=== PATIENT | male | born 1990 | race Caucasian/White ===

== ENCOUNTER 2016-05-10 13:34 | Emergency (ER) | payer OTHER ==
--- NOTE | 2016-05-10 14:39 | DIAGNOSTIC IMAGING REPORT ---
PROCEDURE: XR CHEST 2 VIEW INDICATION: CHEST PAIN TECHNIQUE: PA and lateral views. COMPARISON: None. FINDINGS: Lungs are clear. Heart and mediastinum are normal. Thorax is normal. IMPRESSION: 1. Negative chest.
--- NOTE | 2016-05-10 15:28 | ED CLINICAL REPORT ---
Clinical Report - Physicians/Mid Levels [facility] [address], [place] [address] 05/10/2016 13:36 Patient: NIECY SMITH Time Seen: 13:54 Kashif 2016. Arrived- By private vehicle. Historian- patient. HISTORY OF PRESENT ILLNESS Chief Complaint: CHEST PAIN and DISCOMFORT. It is described as located in the central chest area. This started 2 - 3 weeks MOLD SHIFTER and is still present. (Intermittent chest pain palpitations over the last 2-3 weeks, lasting a few hours sometimes minutes. Denies any shortness of breath, illness, fevers or chills. He denies any pattern of activity to the pain. Denies any fevers or chills. Denies any trauma. Denies history of DVT or PE. Denies any history of [place] in the family.). REVIEW OF SYSTEMS No chills, pedal edema, vaginal discharge, abdominal pain or difficulty with urination. All systems otherwise negative, except as recorded above. SOCIAL HISTORY History of drug use cocaine use occasional, last use 4 weeks prior. ADDITIONAL NOTES The nursing notes have been reviewed. PHYSICAL EXAM Appearance: Alert. No acute distress. No apparent distress. Does not appear to be anxious. Eyes: Pupils equal, round and reactive to light. Eyes normal inspection. ENT: Ears normal. Neck: Normal inspection. Neck supple. CVS: Normal heart rate and rhythm. Heart sounds normal. Respiratory: No respiratory distress. Breath sounds normal. No retractions, chest pain reproduced on physical exam or decreased air movement. Abdomen: Soft and nontender. Neuro: Oriented X 3. No motor deficit. No sensory deficit. LABS, X-RAYS, AND EKG EKG: EKG time: (1357). No acute process. No acute ischemia. Rate: 85. Normal P waves. Normal ALBAN. Normal QRS complex. Normal axis. Normal ST and T waves and QT. Prior EKG unavailable. The study has been interpreted contemporaneously. The study has been independently viewed by me. The EKG appears to be a good tracing. Chest X-ray: (IMPRESSION: 1. Negative chest. Electronically Final signed by:Juancho Dockery MD 05/10/2016 2:43:08 PM). Laboratory Tests: CBC w Diff: (CONNIE: 05/10/2016 14:40) ( MsgRcvd 05/10/2016 14:53) Final results Test Result Flag Units (Reference) WHITE BLOOD COUNT 5.7 K/uL (4.5-11.5) RED BLOOD COUNT 4.85 M/uL (4.50-5.90) HEMOGLOBIN 15.0 gm/dL (13.5-17.5) HEMATOCRIT 45.1 % (41.0-53.0) MEAN CELL VOLUME 93 fL (80-100) MEAN CORPUSCULAR HGB 31 pg (26-34) MEAN CORPUSCULAR HGB CONC 33 g/dL (31-37) RED CELL DISTRIBUTION WIDTH 12.2 % (11.6-14.8) PLATELET COUNT 232 K/uL (150-400) NEUTROPHIL % 59.5 % (50-75) LYMPH % 26.4 % (25-40) MONO % 10.3 % (3-14) EOSINOPHIL % 3.0 % (0-4) BASOPHIL % 0.8 % (0-2) CHEM 13 PANEL: (CONNIE: 05/10/2016 14:40) ( MsgRcvd 05/10/2016 15:19) Final results Test Result Flag Units (Reference) GLUCOSE 110 mg/dL (70-110) BUN 15 mg/dL (7-18) CREATININE 1.0 mg/dL (0.6-1.3) Estimated GFR >60 mL/min Estimated GFR- >60 mL/min Note: Persistent reduction over 3 months in eGFR<60 mL/min/1.73 m2 defines CKD. Patients with eGFR values>=60 mL/min/1.73 m2 may also have CKD if evidence ofpersistent proteinuria. Additional information may be foundat www.kidney.org. SODIUM 142 mmol/L (136-145) POTASSIUM 3.9 mmol/L (3.5-5.1) CHLORIDE 106 mmol/L (98-107) CARBON DIOXIDE 30 mmol/L (21-32) CALCIUM 9.0 mg/dL (8.5-10.1) TOTAL PROTEIN 7.3 g/dL (6.4-8.2) ALBUMIN 4.0 g/dL (3.3-5.0) BILIRUBIN, TOTAL 1.0 mg/dL (0.0-1.0) ALKALINE PHOSPHATASE 49 U/L (46-116) AST (SGOT) 18 U/L (15-37) ALT (SGPT) 21 U/L (12-78) CPK 95 U/L (24-260) MAGNESIUM 2.0 mg/dL (1.8-2.4) TROPONIN I <0.05 L ng/mL (0.00-1.5) TROPONIN REFERENCE RANGE:<0.1 NEGATIVE0.1-1.5 INDETERMINANT>1.5 POSITIVE . PROGRESS AND PROCEDURES Course of Care: Patient with no new murmur, afebrile, no reproducible pain. Patient reports symptoms worsen when he has energy drinks, may be anxiety related believes. He is stable otherwise. To follow up outpatient. This time suspicion for acute ACS, PE is LOWEST. Patient/family counseled. Differential Diagnosis: I considered muscle strain, pleurisy, intercostal neuritis, myocardial infarction, intermediate coronary syndrome, aortic dissection, pulmonary embolism, pneumonia and gastroesophageal reflux disease as a possible cause of chest pain in this patient. This is a partial list of diagnoses considered. Wells clinical prediction rule (PE): No clinical symptoms of DVT, other diagnosis less likely than PE, immobilization or surgery within 4wks, previous DVT or PE or hemoptysis. No malignancy. Heart rate less than 100 per minute. Disposition: Discharged. Condition: good. CLINICAL IMPRESSION Atypical chest pain INSTRUCTIONS No strenuous activity. Rest. Avoid stimulants (such as cigarettes, coffee, cold medicines, sinus medicines, street drugs). Follow a low salt diet. OTC Medications: Take OTC medications according to label instructions. Available over the counter. Acetaminophen (available over the counter): take according to label instructions. Motrin (available over the counter): take according to label instructions. Follow-up: Follow up with your doctor in three days. Understanding of the discharge instructions verbalized by patient. (Electronically signed by Lara Guadalupe P.A.-C 05/10/2016 15:50)
--- NOTE | 2016-05-10 15:28 | ED ORDER SUMMARY ---
..... Patient: NIECY SMITH OrderSheet [facility] VisitID: [id number] [address] [place] [address] 26y, M Registration Date/Time: 05/10/2016 ORDER SHEET Weight: 108.8 kg (stated) Allergies: No Known Drug Allergy GENERAL ORDERS: Chest 2V Urgent (14:20 05/10/2016 EKoroleva P.A.-C) (Ack 14:36 RKaruga) Parts Salvager (Continuous) (14:05/10/2016 EKoroleva P.A.-C) (14:22 Jonathan R.N.) Cardiac Panel Stat (14:05/10/2016 EKoroleva P.A.-C) (Ack 14:36 RKaruga) EKG - ER Stat (14:05/10/2016 EKoroleva P.A.-C) (14:22 Jonathan R.N.) EKG - ER Stat (14:05/10/2016 EKoroleva P.A.-C) (Ack 14:36 RKaruga) (15:45 RKaruga) MEDICATION ORDERS: IV FLUIDS: IV Saline Lock (14:05/10/2016 EKoroleva P.A.-C) (14:40 [facility] ORDER SHEET NOTES: [Electronically signed by Elicia Colmenares (15:48 05/10/2016)] [Electronically signed by Lara Guadalupe P.A.-C (15:50 05/10/2016)] [Electronically locked/signed by Elicia Colmenares (15:48 05/10/2016)]
--- NOTE | 2016-05-10 15:28 | ED NURSING NOTES ---
Clinical Report - Nurses [facility] [address] [place] [address] 05/10/2016 13:36 Patient: NIECY SMITH TRIAGE Triage time 13:48. Acuity: LEVEL 3. Chief Complaint: CHEST PAIN. Alert. No acute distress. EDITH COMA SCORE: Edith Coma Scale: 15- eyes open spontaneously (4); best verbal response- oriented x 4 (5); best motor response- obeys commands (6). --13:58 Racquel Wiley R.N. 13:48 05/10/16. Pain level now 3/10. --13:58 Racquel Wiley R.N. Weight: 108.8 kg stated. --13:54 Racquel Wiley R.N.. Height/Length: 74 inches Per Patient. BMI: 30.8. --13:54 Racquel Wiley R.N. Medications None. --13:51 Racquel Wiley R.N. Medication/allergy information source: the patient. --13:58 Racquel Wiley R.N. Allergies No Known Drug Allergy. --13:51 Racquel Wiley R.N. History Arrived by private vehicle. Historian: patient. Unaccompanied. Primary physician (Segun). Onset. (about 2 weeks). Describes the quality as (intermittent). Relates location as in the right and left chest area and epigastric area. Notes pain level as 3/10 on arrival and 6/10 at maximum. Provoking / relieving factors: not worsened by anything. ( pain moves, sometimes it's on the left chest and sometimes the right, occ is epigassstric). The patient has had difficulty breathing, nausea and vomiting. Reports experiencing sweating episodes. SOCIAL HX: Smoker- current status unknown (no). Occasional alcohol use. History of drug use: cocaine. (about 1 months ago). FALL RISK ASSESSMENT: Fall risk assessment completed. No fall risk identified. FUNCTIONAL ASSESSMENT: Functional assessment: no impairments noted. LEARNING NEEDS ASSESSMENT: The learning needs assessment revealed no barriers. --13:58 Racquel Wiley R.N. PROBLEMS: Abrasion(s). Fibula Fracture. Tibia Fracture. Tetanus Status. Immunizations. --13:51 Racquel Wiley R.N. ADDITIONAL SURGERIES: Tonsillectomy. --13:51 Racquel Wiley R.N. Assessment GENERAL / NEURO / PSYCH: Alert. Oriented X 4. Appears in no acute distress. Patient appears calm and cooperative. RESPIRATORY: Respirations not labored. CVS: Cardiac rhythm: sinus rhythm. SKIN: Skin is warm and dry. --13:58 Racquel Wiley R.N. Interventions ID band on patient. To treatment room. --13:58 Racquel Wiley R.N. PHYSICAL ASSESSMENT 13:56 05/10/16. Ambulatory to room. Patient gowned. GENERAL / NEURO / PSYCH: Alert. Oriented X 4. Appears in no acute distress. RESPIRATORY: Respirations not labored. SKIN: Skin is warm and dry. --13:56 Racquel Wiley R.N. NURSING PROGRESS NOTES 13:56 05/10/16. gambling monitor, pulse oximeter and NIBP monitor placed on patient. Patient gowned. Head of bed elevated. Reassurance given. Call light placed in reach. Side rails up x 1. Bed placed in lowest position. Brakes of bed on. --13:56 Racquel Wiley R.N. EKG time: (13:57). EKG was performed by a tech and shown to the ED physician. --13:59 Freddie Osborne 14:40 05/10/2016 Site #1 started via IV in the right antecubital space with an 20g angiocath, with aseptic technique and good blood return; one attempt. Blood drawn: rainbow set. Labeled in the presence of the patient and sent to the lab. Saline lock flushed with 10 mL saline. --14:40 Elicia Colmenares The patient is calm and resting quietly. Overall patient status is the same- he states feels the same. Patient informed about reason for wait and about plan of care. Patient waiting for lab results. --15:28 Elicia Colmenares 15:28 05/10/16. BP: 122/82. HR: 85. RR: 18. O2 saturation: 100%. Pain level now 2/10. --15:28 Elicia Colmenares 15:31 05/10/16. BP: 119/77 taken on the left arm, via an automated monitor, while lying. HR: 80 (regular, normal rate and strong). RR: 18. O2 saturation: 100% on room air. --15:32 Freddie Osborne. DISPOSITION / DISCHARGE 15:41 05/10/2016 Site #1 removed upon discharge. Pressure dressing applied. --15:41 Elicia Colmenares Departure time: 1530. Condition at departure: improved and stable. No learning barriers present. Discharge instructions provided and reviewed with the patient. Patient verbalized understanding. Written instructions provided in Yakut. The patient was discharged by the physician case management assistant. He was discharged home. He left the Emergency Department ambulatory and via private vehicle. Patient driving. --15:47 Elicia Colmenares 15:41 05/10/16. BP: 119/77. HR: 68. RR: 16. O2 saturation: 98%. Pain level now 2/10. --15:47 Elicia Colmenares. Locked/Released at 05/10/2016 15:48 by Elicia Colmenares,
--- NOTE | 2016-05-10 15:28 | ED ORDER SUMMARY ---
..... Patient: NIECY SMITH OrderSheet [facility] VisitID: [id number] [address] [place] [address] 26y, M Registration Date/Time: 05/10/2016 ORDER SHEET Weight: 108.8 kg (stated) Allergies: No Known Drug Allergy GENERAL ORDERS: Chest 2V Urgent (14:20 05/10/2016 EKoroleva P.A.-C) (Ack 14:36 RKaruga) [employer] Worker (Continuous) (14:05/10/2016 EKoroleva P.A.-C) (14:22 Jonathan R.N.) Cardiac Panel Stat (14:05/10/2016 EKoroleva P.A.-C) (Ack 14:36 RKaruga) EKG - ER Stat (14:05/10/2016 EKoroleva P.A.-C) (14:22 Jonathan R.N.) EKG - ER Stat (14:05/10/2016 EKoroleva P.A.-C) (Ack 14:36 RKaruga) (15:45 RKaruga) MEDICATION ORDERS: IV FLUIDS: IV Saline Lock (14:05/10/2016 EKoroleva P.A.-C) (14:40 [facility] ORDER SHEET NOTES: [Electronically signed by Elicia Colmenares (15:48 05/10/2016)] [Electronically signed by Lara Guadalupe P.A.-C (15:50 05/10/2016)] [Electronically locked/signed by Elicia Colmenares (15:48 05/10/2016)]
--- NOTE | 2016-05-10 15:28 | ED NURSING NOTES ---
Clinical Report - Nurses [facility] [address] [place] [address] 05/10/2016 13:36 Patient: NIECY SMITH TRIAGE Triage time 13:48. Acuity: LEVEL 3. Chief Complaint: CHEST PAIN. Alert. No acute distress. EDITH COMA SCORE: Edith Coma Scale: 15- eyes open spontaneously (4); best verbal response- oriented x 4 (5); best motor response- obeys commands (6). --13:58 Racquel Wiley R.N. 13:48 05/10/16. Pain level now 3/10. --13:58 Racquel Wiley R.N. Weight: 108.8 kg stated. --13:54 Racquel Wiley R.N.. Height/Length: 74 inches Per Patient. BMI: 30.8. --13:54 Racquel Wiley R.N. Medications None. --13:51 Racquel Wiley R.N. Medication/allergy information source: the patient. --13:58 Racquel Wiley R.N. Allergies No Known Drug Allergy. --13:51 Racquel Wiley R.N. History Arrived by private vehicle. Historian: patient. Unaccompanied. Primary physician (Segun). Onset. (about 2 weeks). Describes the quality as (intermittent). Relates location as in the right and left chest area and epigastric area. Notes pain level as 3/10 on arrival and 6/10 at maximum. Provoking / relieving factors: not worsened by anything. ( pain moves, sometimes it's on the left chest and sometimes the right, occ is epigassstric). The patient has had difficulty breathing, nausea and vomiting. Reports experiencing sweating episodes. SOCIAL HX: Smoker- current status unknown (no). Occasional alcohol use. History of drug use: cocaine. (about 1 months ago). FALL RISK ASSESSMENT: Fall risk assessment completed. No fall risk identified. FUNCTIONAL ASSESSMENT: Functional assessment: no impairments noted. LEARNING NEEDS ASSESSMENT: The learning needs assessment revealed no barriers. --13:58 Racquel Wiley R.N. PROBLEMS: Abrasion(s). Fibula Fracture. Tibia Fracture. Tetanus Status. Immunizations. --13:51 Racquel Wiley R.N. ADDITIONAL SURGERIES: Tonsillectomy. --13:51 Racquel Wiley R.N. Assessment GENERAL / NEURO / PSYCH: Alert. Oriented X 4. Appears in no acute distress. Patient appears calm and cooperative. RESPIRATORY: Respirations not labored. CVS: Cardiac rhythm: sinus rhythm. SKIN: Skin is warm and dry. --13:58 Racquel Wiley R.N. Interventions ID band on patient. To treatment room. --13:58 Racquel Wiley R.N. PHYSICAL ASSESSMENT 13:56 05/10/16. Ambulatory to room. Patient gowned. GENERAL / NEURO / PSYCH: Alert. Oriented X 4. Appears in no acute distress. RESPIRATORY: Respirations not labored. SKIN: Skin is warm and dry. --13:56 Racquel Wiley R.N. NURSING PROGRESS NOTES 13:56 05/10/16. cardiac monitor technician, pulse oximeter and NIBP monitor placed on patient. Patient gowned. Head of bed elevated. Reassurance given. Call light placed in reach. Side rails up x 1. Bed placed in lowest position. Brakes of bed on. --13:56 Racquel Wiley R.N. EKG time: (13:57). EKG was performed by a tech and shown to the ED physician. --13:59 Freddie Osborne 14:40 05/10/2016 Site #1 started via IV in the right antecubital space with an 20g angiocath, with aseptic technique and good blood return; one attempt. Blood drawn: rainbow set. Labeled in the presence of the patient and sent to the lab. Saline lock flushed with 10 mL saline. --14:40 Elicia Colmenares The patient is calm and resting quietly. Overall patient status is the same- he states feels the same. Patient informed about reason for wait and about plan of care. Patient waiting for lab results. --15:28 Elicia Colmenares 15:28 05/10/16. BP: 122/82. HR: 85. RR: 18. O2 saturation: 100%. Pain level now 2/10. --15:28 Elicia Colmenares 15:31 05/10/16. BP: 119/77 taken on the left arm, via an automated monitor, while lying. HR: 80 (regular, normal rate and strong). RR: 18. O2 saturation: 100% on room air. --15:32 Freddie Osborne. DISPOSITION / DISCHARGE 15:41 05/10/2016 Site #1 removed upon discharge. Pressure dressing applied. --15:41 Elicia Colmenares Departure time: 1530. Condition at departure: improved and stable. No learning barriers present. Discharge instructions provided and reviewed with the patient. Patient verbalized understanding. Written instructions provided in Uzbek. The patient was discharged by the physician campus administrative assistant. He was discharged home. He left the Emergency Department ambulatory and via private vehicle. Patient driving. --15:47 Elicia Colmenares 15:41 05/10/16. BP: 119/77. HR: 68. RR: 16. O2 saturation: 98%. Pain level now 2/10. --15:47 Elicia Colmenares. Locked/Released at 05/10/2016 15:48 by Elicia Colmenares,
--- NOTE | 2016-05-10 15:50 | ED DISCHARGE INSTRUCTIONS ---
Patient: NIECY SMITH General Instructions [facility] VisitID: [id number] [address] [place] [address] 26y, M Registration Date/Time: 05/10/2016 Atypical chest pain INSTRUCTIONS No strenuous activity. Rest. Avoid stimulants (such as cigarettes, coffee, cold medicines, sinus medicines, street drugs). Follow a low salt diet. OTC Medications: Take OTC medications according to label instructions. Available over the counter. Acetaminophen (available over the counter): take according to label instructions. Motrin (available over the counter): take according to label instructions. Follow-up: Follow up with your doctor in three days. Understanding of the discharge instructions verbalized by patient. ADDITIONAL INFORMATION Chest Pain, Noncardiac Based on your visit today, the exact cause of your chest pain is not certain. Your condition does not seem serious and your pain does not appear to be coming from your heart. However, sometimes the signs of a serious problem take more time to appear. Therefore, please watch for the warning signs listed below. Home Care: Rest today and avoid strenuous activity. Take any prescribed medicine as directed. Follow Up with your doctor or this facility as instructed or if you do not start to feel better within 24 hours. Get Prompt Medical Attention if any of the following occur: A change in the type of pain: if it feels different, becomes more severe, lasts longer, or begins to spread into your shoulder, arm, neck, jaw or back Shortness of breath or increased pain with breathing Cough with dark colored sputum (phlegm) or blood Weakness, dizziness, or fainting Fever of 100.4F (38C) or higher, or as directed by your healthcare provider Swelling, pain or redness in one leg Chest Pain, Uncertain Cause Chest pain can happen for a number of reasons. Sometimes the cause can not be determined. If yourcondition does not seem serious, and your pain does not appear to be coming from your heart, your doctor may recommend watching it closely. Sometimes the signs of a serious problem take more time to appear. Therefore, watch for the warning signs listed below. Home care After your visit, follow these recommendations: Rest today and avoid strenuous activity. Take any prescribed medicine as directed. Follow-up care Follow up with your doctor or this facility as instructed or if you do not start to feel better within 24 hours. Call 911 Get immediate medical attention if any of the following occur: A change in the type of pain: if it feels different, becomes more severe, lasts longer, or begins to spread into your shoulder, arm, neck, jaw or back Shortness of breath or increased pain with breathing Weakness, dizziness, or fainting Rapid heart beat Get prompt medical attention Call your doctor right away if any of the following occur: Cough with dark colored sputum (phlegm) or blood Fever of 100.4F(38C) or higher, or as directed by your health care provider Swelling, pain or redness in one leg You have been given the following additional information: Chest Pain, Noncardiac Chest Pain, Uncertain Cause No strenuous activity. Rest. (Electronically signed by Lara Guadalupe P.A.-C 05/10/2016 15:50)
--- NOTE | 2016-05-10 15:50 | ED MED RECONCILIATION SUMMARY ---
Patient: NIECY SMITH Medication Reconciliation Report [facility] VisitID: [id number] [address] [place] [address] 26y, M Registration Date/Time: 05/10/2016 Weight: 108.8 kg Height/Length: 74 in. BMI: 30.8 ALLERGIES: No Known Drug Allergy The patient's Home Medications are listed below: NONE. The source(s) of the original Home Medication information: patient The following Medications were given to the patient in the Emergency Department: None. The following Medications were prescribed to the patient: Take OTC medications according to label instructions. Available over the counter. -- Lara Guadalupe, P.A.-C Acetaminophen (available over the counter): take according to label instructions. -- Lara Guadalupe, P.A.-C Motrin (available over the counter): take according to label instructions. -- Lara Guadalupe, P.A.-C
--- NOTE | 2016-05-10 15:50 | ED MAR SUMMARY ---
..... Medication Administration Record [facility] [address], [place] [id number] Patient: NIECY SMITH Visit ID: [id number] 26y, M Weight: 108.8 kg Height/Length: 74 in BMI: 30.8 ALLERGIES: No Known Drug Allergy
--- NOTE | 2016-05-10 15:50 | ED MED RECONCILIATION SUMMARY ---
Patient: NIECY SMITH Medication Reconciliation Report [facility] VisitID: [id number] [address] [place] [address] 26y, M Registration Date/Time: 05/10/2016 Weight: 108.8 kg Height/Length: 74 in. BMI: 30.8 ALLERGIES: No Known Drug Allergy The patient's Home Medications are listed below: NONE. The source(s) of the original Home Medication information: patient The following Medications were given to the patient in the Emergency Department: None. The following Medications were prescribed to the patient: Take OTC medications according to label instructions. Available over the counter. -- Lara Guadalupe, P.A.-C Acetaminophen (available over the counter): take according to label instructions. -- Lara Guadalupe, P.A.-C Motrin (available over the counter): take according to label instructions. -- Lara Guadalupe, P.A.-C
--- NOTE | 2016-05-10 15:50 | ED MAR SUMMARY ---
..... Medication Administration Record [facility] [address], [place] [id number] Patient: NIECY SMITH Visit ID: [id number] 26y, M Weight: 108.8 kg Height/Length: 74 in BMI: 30.8 ALLERGIES: No Known Drug Allergy
== END 2016-05-10 15:40 | disposition home or self-care (01) ==
LOC: ED SRH 13:34
DX: R07.89 Other chest pain (principal)
CPT/HCPCS: 90100; 90616; 92610; 92720; 95059